=== PATIENT | male | born 1970 | race Caucasian/White ===

== ENCOUNTER 2018-09-27 10:13 | Day surgery (SDC) | payer MEDICAID ==
[~2018-09-27] VITALS: Ht 168.9 cm; Wt 83.0 kg
[2018-09-27] MEDS ORDERED: LACTATED RINGERS 1,000 ML IV SCH (11:00)
[2018-09-27 11:12] LABS: BASOPHILS % 0.8 % (0.0-2.0); EOSINOPHILS % 5.3 % (0.0-5.0); HEMATOCRIT. 33.3 % (42.0-52.0); HEMOGLOBIN. 11.3 g/dL (14.0-18.0); LYMPHOCYTES % 24.4 % (20.0-50.0); MEAN PLATELET VOLUME 7.5 fl (7.4-10.4); MONOCYTES % 12.5 % (2.0-8.0); PLATELET 57 x1000/uL (130-400); RED BLOOD CELL COUNT 3.55 mill/uL (4.7-6.1); RED CELL DISTRIBUTION WIDTH 15.4 % (11.6-14.6)
[2018-09-27 11:15] LABS: CHLORIDE 106 mEq/L (98-107)
[2018-09-27 11:20] LABS: INR 1.1; PARTIAL THROMBOPLASTIN TIME 28.5 sec (23.4-31.0); PROTHROMBIN TIME 11.2 sec (9.1-11.1)
[2018-09-27] MEDS ORDERED: THIA100T72 PO (11:41)
[2018-09-27] MEDS ORDERED: FURO20TA4 PO (11:41)
[2018-09-27] MEDS ORDERED: OMEP40CA34 PO (11:41)
[2018-09-27] MEDS ORDERED: SPIR50TA5 PO (11:41)
[2018-09-27] MEDS ORDERED: SIMETHICONE 40 MG/0.6 ML 30ML ONE (11:52)
[2018-09-27] MEDS ORDERED: FENTANYL CITRATE/PF 50MCG/ML 2ML VIAL ONE (12:18)
[2018-09-27] MEDS ORDERED: DIPHENHYDRAMINE 50MG/ML VIAL ONE (12:19)
[2018-09-27] MEDS ORDERED: MIDAZOLAM HCL 2 MG/2 ML VIAL ONE (12:19)
[2018-09-27] MEDS ORDERED: PROPOFOL 200MG/20ML VIAL IV ONE (12:19)
[2018-09-27] MEDS ORDERED: LIDOCAINE HCL 1% 20ML VIAL (Pyxis) INJ ONE (12:19)
== END 2018-09-27 13:30 | disposition home or self-care (01) ==
LOC: OR 10:13
PROVIDERS: ATTEND Internal Medicine Gastroenterology
DX: K70.31 Alcoholic cirrhosis of liver with ascites (principal); I85.11 Secondary esophageal varices with bleeding; K25.9 Gastric ulcer, unspecified as acute or chronic, without hemorrhage or perforation; D69.6 Thrombocytopenia, unspecified; K76.6 Portal hypertension; F41.9 Anxiety disorder, unspecified
CPT/HCPCS: 36415; 43239; 43244; 80048; 85025; 85610; 85730; 86677; 93005; J1200; J2250; J2704; J3010; J3490